=== PATIENT | male | born 1975 | race African-American/Black ===

== ENCOUNTER 2020-09-18 09:35 | Emergency (ER) | payer BC ==
[~2020-09-18] VITALS: Ht 193 cm; Wt 113.4 kg
[2020-09-18 09:45] VITALS: BP 134/78
--- NOTE | 2020-09-18 10:08 | NUR ---
Patient discharged to home in stable condition. Written and verbal after care instructions given. Patient verbalizes understanding of instruction.
== END 2020-09-18 10:09 | disposition home or self-care (01) ==
LOC: ER 09:47
DX: N50.1 Vascular disorders of male genital organs (principal)